=== PATIENT | male | born 1960 | race Caucasian/White ===

== ENCOUNTER 2024-02-08 21:23 | Emergency (ER) | payer OTHER | END 2024-02-08 22:16 | LOC: NAV ERS 21:23 | DX: H04.412 Chronic dacryocystitis of left lacrimal passage (principal); F17.200 Nicotine dependence, unspecified, uncomplicated; B18.2 Chronic viral hepatitis C | CPT/HCPCS: 87070; 87186; 87205; 87902; 99283 ==